=== PATIENT | female | born 1985 | race Caucasian/White ===

== ENCOUNTER 2021-08-14 07:34 | Outpatient (CLI) | payer MEDICARE, MEDICAID, SELFPAY ==
[2021-08-18 17:11] LABS: HPV APTIMA, High Risk Negative (Negative)
== END 2021-08-14 23:59 | disposition home or self-care (01) ==
LOC: LABSPEC 08-15 07:35
PROVIDERS: PCP Family Medicine; Visit Provider Obstetrics & Gynecology
DX: Z12.4 Encounter for screening for malignant neoplasm of cervix (principal)
CPT/HCPCS: 87624; 88175; G0145

== ENCOUNTER 2021-08-15 11:56 | Outpatient (CLI) | payer MEDICARE, MEDICAID, SELFPAY ==
[2021-08-15 12:22] LABS: Absolute Lymphocyte Count 2.72 X10^3/uL (0.83-4.51); Absolute Neutrophil Count 13.9 X10^3/uL (2.0-7.7); Basophil# 0.05 X10^3/uL; Basophil% 0.3 % (0-1); Eosinophil# 0.79 X10^3/uL; Eosinophils% 4.3 % (0-5); Hematocrit 44.7 % (37-47); Hemoglobin 13.9 g/dL (12.0-15.0); Lymphocyte # 2.72 X10^3/ul (0.83-4.51); Lymphocyte % 14.7 % (19-41); Mean Corp Hgb Conc 31.1 g/dL (32-36); Mean Corpuscular Hgb 23.8 pg (27.0-32.0); Mean Corpuscular Volume 76.7 fL (81-99); Monocyte# 0.92 X10^3/uL; NRBC Flagged by Analyzer 0 % (0-5); Neutrophil % 75.3 % (47-70); Platelet Count 442 K/mm3 (150-450); RBC Distribution Width CV 17.4 % (11.6-14.6); RBC Distribution Width SD 46.8 fl (35.1-43.9); Red Blood Count 5.83 M/mm3 (4.2-5.4); White Blood Count 18.5 K/mm3 (4.4-11.0)
[2021-08-15 12:40] LABS: Hemoglobin A1c 5.8 % (3.8-5.6)
[2021-08-15 13:06] LABS: ALB/GLOB Ratio 0.9 RATIO (0.9-2.4); AST(SGOT) 14 U/L (15-37); Alanine Aminotransfer ALT/SGPT 27 U/L (13-56); Albumin, Serum 3.6 g/dL (3.2-5.0); Alkaline Phosphatase 83 U/L (45-117); Anion Gap 8 (5-15); BUN 10 mg/dL (7-18); BUN/Creat Ratio 10.4 RATIO (10-20); Calcium,Total 9.1 mg/dL (8.5-10.1); Chloride 105 mmol/L (98-107); Creatinine, Serum 0.96 mg/dL (0.55-1.02); EST Glomerular Filtration Rate 70 mL/min (>60); Est Glom Filt Rate - Afr Amer 85 mL/min (>60); Globulin 4.2 g/dL (2.2-4.2); Glucose 104 mg/dL (74-106); Potassium 4.1 mmol/L (3.5-5.1); Prolactin 7.6 ng/mL; Protein, Total 7.8 g/dL (6.4-8.2); Sodium Level 138 mmol/L (136-145); Thyroid Stim Hormone (TSH) 1.95 uIU/mL (0.358-3.74)
[2021-08-19 18:07] LABS: Testosterone, % Free 1.97 % (0.50-2.80); Testosterone, Free 0.95 ng/dL (0.10-0.85); Testosterone, Total 48 ng/dL (8-60)
[2021-08-22 10:45] LABS: 17-Hydroxyprogesterone 49 ng/dL (.)
== END 2021-08-15 23:59 | disposition home or self-care (01) ==
LOC: LAB 11:58
PROVIDERS: Obstetrics & Gynecology; PCP Nurse Practitioner; Referring Provider Nurse Practitioner; Visit Provider Nurse Practitioner
DX: R73.09 Other abnormal glucose (principal)
CPT/HCPCS: 36415; 80053; 82627; 83036; 83498; 84146; 84402; 84403; 84443; 85025; 82626

== ENCOUNTER → 2021-09-14 | Outpatient (CLI) | payer MEDICARE, MEDICAID, SELFPAY | END | disposition home or self-care (01) | LOC: RAD 09:03 | PROVIDERS: PCP Nurse Practitioner; Referring Provider Obstetrics & Gynecology; Visit Provider Obstetrics & Gynecology | DX: E28.2 Polycystic ovarian syndrome (principal); N97.9 Female infertility, unspecified | CPT/HCPCS: 58340; 74740 ==

== ENCOUNTER 2021-10-09 08:45 | Day surgery (SDC) | payer MEDICARE, MEDICAID, SELFPAY ==
[2021-10-05 12:37] LABS: Hematocrit 43.4 % (37-47); Hemoglobin 13.7 g/dL (12.0-15.0); Mean Corp Hgb Conc 31.6 g/dL (32-36); Mean Corpuscular Hgb 24.1 pg (27.0-32.0); Mean Corpuscular Volume 76.3 fL (81-99); Mean Platelet Vol. 9.6 fl (6.2-12.0); Platelet Count 448 K/mm3 (150-450); RBC Distribution Width CV 17.8 % (11.6-14.6); RBC Distribution Width SD 46.7 fl (35.1-43.9); Red Blood Count 5.69 M/mm3 (4.2-5.4); White Blood Count 19.3 K/mm3 (4.4-11.0)
[2021-10-09] VITALS (9 sets, daily range): BP systolic 129–149; BP diastolic 79–98; PULSE 68–104; RESP 16; TEMP 36.6–36.8; O2SAT 16–100; BMI 35.5
--- NOTE | 2021-10-09 07:21 | HP.PCM_ITS ---
History and Physical Date of Admission: 10/09/21 MR#:[id number]: MAY TURCIOS ANNRep #[id number] Provider:Dr. Sophie Cobb, DOAge/Sex: 36/F [facility] Int[facility] Vital Signs 10/05/21 11:01 Height 5 ft 2 in Weight: 222 lb BMI 40.6 BP 118/80 Intake Visit Reasons: preop diag. lap chromopertubation Chief Complaint: pre op diag lap chromo Utility Pipe Layer Required: No Is patient in pain?: No Allergies celecoxib [From Celebrex] Allergy (Verified 10/02/21 12:53) Other cephalexin monohydrate [From Keflex] Adverse Reaction (Verified 10/02/21 12:53) Rash sulfamethoxazole [From Bactrim] Adverse Reaction (Verified 10/02/21 12:53) Rash trimethoprim [From Bactrim] Adverse Reaction (Verified 10/02/21 12:53) Rash Medications metformin 500 mg tablet,extended release 24 hr 500 mg PO DAILY #1 tab 08/17/21 [Rx Confirmed 10/05/21] albuterol sulfate 90 mcg INHALATION Q4H PRN 10/02/21 [History Confirmed 10/05/21] clindamycin phosphate [Clindagel] 1 applic TOPICAL DAILY PRN 10/02/21 [History Confirmed 10/05/21] clonazepam 0.5 mg PO PRN PRN 10/02/21 [History Confirmed 10/05/21] sertraline [Zoloft] 100 mg PO DAILY 10/02/21 [History Confirmed 10/05/21] Is last menstrual period known: No Post menopausal: No Patient : No : No PFSH Medical History Alcohol use Anxiety Arthritis Asthma Back pain Bipolar disorder Depression Diabetes History of edema History of Holter monitoring History of pain when walking History of renal disease History of steroid therapy Hx of sinus tachycardia Hydradenitis Marijuana use PCOS (polycystic ovarian syndrome) Shortness of breath on exertion Smoker Thyroid disease Wears dentures Wears glasses Surgical History H/O LEEP H/O unilateral salpingectomy Hx of tooth extraction S/P sinus surgery S/P tonsillectomy and adenoidectomy Family History Mother Diabetes Grandmother Diabetes Other Kidney disease Social History Smoking Status: Current every day smoker tobacco type: cigarettes alcohol intake: never substance use type: does not use caffeine: Yes what type of physical activity do you participate in: walking seatbelt use: always do you feel safe at home: Yes additional social history: -[facility] preop diag. lap chromopertubation Details: MAY TURCIOS is a 36 year old who presents for preop exam for schedule diagnostic laparoscopy and chromopertubation after failed attempt at HSG. The patient could not tolerate the speculum part of the HSG and the procedure was aborted. She currently only has one fallopian tube and desires fertility. One tube was removed several years ago due to hydrosalpinx. At that time, 2014 she was noted to have moderate to severe endometriosis involving both ovaries (socked in posterior aspet of uterus with loculated endometrioma) She has continued to have pelvic pain and continues to desire fertility. She states that her partner took a better job to save up for IVF if the opposite tube needs to be removed. She states that she is prepared for this but would rather have it removed if it means that she has a better chance of achieving with IVF. May also suffers with PCOS (Hirsutism, HS, obesity, and irregular menses) Female Reproductive History Menopausal Symptoms: No hot flashes and No night sweats Pregancy History 0 Elective abortions Hx Para Spontaneous abortions Hx # Term Pregnancies Ectopic pregnancies Hx # Pregnancies Multiple births # of living children ROS Const ROS Unobtainable: All systems reviewed & are unremarkable except as noted in H Constitutional: Reports as per HPI; Denies fatigue, increased appetite, poor appetite, night sweats, weight gain or weight loss ENT ENT: Reports system reviewed and no additional complaints, except as documented Cardio Card: Denies chest pain Resp Resp: Reports system reviewed and no additional complaints, except as documented; Denies cough GI GI: Reports as per HPI : Reports as per HPI and other; Denies difficulty voiding, dysuria, hematuria, hot flashes, nipple discharge, pelvic pain, prolapse symptoms, urinary frequency, urinary incontinence, urinary urgency, vaginal discharge, vaginal dryness, vaginal odor or vaginal pruritus Musc Musc: Reports system reviewed and no additional complaints, except as documented Skin Skin/Breast: Denies changing lesions, breast mass, breast pain, breast skin changes or nipple discharge Psych Psych: Reports system reviewed and no additional complaints, except as documented Endo Endo: Reports as per HPI Exam Const General: cooperative, healthy appearing, comfortable and no acute distress Resp Effort & Inspection: normal respiratory effort Skin General: no rashes or lesions noted Extrem General: normal to inspection Psych Appearance: grossly normal Speech and Movement: speech and movement normal Coding Level of Care Code Off vis,est,level 5 Diagnoses Hydrosalpinx N70.11 PCOS (polycystic ovarian syndrome) E28.2 Hydradenitis L73.2 Assessment and Plan Assessment and Plan (1) Hydrosalpinx: Status: Acute (2) PCOS (polycystic ovarian syndrome): Status: Acute (3) Hydradenitis: Status: Acute Comment: TREATED WITH ANTIBIOTICS CURRENTLY/BILAT AXILLA/SMALL IN GROIN/UNDER ABDOMINAL FOLDS Plan - Dr. Sophie Cobb DO: After discussing the patient's diagnosis and treatment plan options, patient wishes to proceed with surgical management. I have discussed with the patient the risks, benefits, and alternatives of the procedure which include but are not limited to risks of anesthesia, bleeding, infection, possible damage to bowel, bladder, or surrounding vasculature which could lead to additional surgery to evaluate any complications. Patient agrees to procedure and wishes to proceed. ACOG/uptodate references given for additional information regarding procedure. the plan is to proceed with a diagnostic laparoscopy, chromopertubation, possible lysis of adhesions, possible salpingectomy UPDATE- I have seen the patient and performed any clinically relevant updates to the history and physical exam. Sophie Cobb DO
[2021-10-09] MEDS: Lactated Ringers 1,000 ML 15 ML IV (09:05)
[2021-10-09 09:34] LABS: Absolute Lymphocyte Count 2.42 X10^3/uL (0.83-4.51); Absolute Neutrophil Count 10.6 X10^3/uL (2.0-7.7); Basophil# 0.05 X10^3/uL; Basophil% 0.3 % (0-1); Eosinophil# 0.49 X10^3/uL; Eosinophils% 3.4 % (0-5); Hematocrit 41.2 % (37-47); Hemoglobin 12.9 g/dL (12.0-15.0); Lymphocyte # 2.42 X10^3/ul (0.83-4.51); Lymphocyte % 16.6 % (19-41); Mean Corp Hgb Conc 31.3 g/dL (32-36); Mean Corpuscular Hgb 23.8 pg (27.0-32.0); Mean Corpuscular Volume 75.9 fL (81-99); Mean Platelet Vol. 9.8 fl (6.2-12.0); Monocyte# 0.91 X10^3/uL; Monocyte% 6.3 % (0-10); NRBC Flagged by Analyzer 0 % (0-5); Neutrophil % 72.9 % (47-70); Platelet Count 430 K/mm3 (150-450); RBC Distribution Width CV 17.7 % (11.6-14.6); RBC Distribution Width SD 46.5 fl (35.1-43.9); Red Blood Count 5.43 M/mm3 (4.2-5.4); White Blood Count 14.5 K/mm3 (4.4-11.0)
[2021-10-09 09:39] LABS: Internal QC Validated? YES +Cl - CLEAR BKGD; Pregnancy, Urine Negative Negative
--- NOTE | 2021-10-09 09:41 | PCM.DC ---
Discharge Instructions Diet Discharge Diet: No restrictions Activity Discharge Activity: Return to Normal Activity, May Not Drive (for two weeks or while taking narcotic pain medications.), May Shower and May Take a Tub Bath (in 7 days) May resume sexual activity in: 1 week Weight Bearing Status: Full weight bearing Dressing / Incision Call your doctor if you observe: Using more than 1 pad per hour, Shortness of breath, Chest pain and Uncontrolled pain Suture Line Care: Avoid Pulling/Pushing and Avoid Pinching/Bending Remove Dressing in: 1 week (if present) Cleanse incision/area with: Soap & Water and Keep Dressing Clean & Dry Follow Up Care Please Follow Up With: Sophie Cobb DO When: Call to make an appointment with your doctor for a follow up incision check in 1-2 weeks. Test Results: Test results from this visit will be discussed in further detail at your follow-up appointment, if applicable. Discharge Plan Admission Primary Reason for Your Visit: laparoscopy Attending Provider: Sophie Cobb Primary Care Provider: Ashlie Beyer NP Discharge Orders/Prescriptions Prescriptions: New oxycodone-acetaminophen [Percocet] 5-325 mg tablet 1 tab PO Q6H PRN (Reason: pain) 3 Days Qty: 7 RF: 0 ibuprofen 800 mg tablet 800 mg PO Q8H PRN (Reason: pain) 7 Days Qty: 20 RF: 0 Continued sertraline [Zoloft] 100 mg Tablet 100 mg PO DAILY RF: 0 clindamycin phosphate [Clindagel] 1 % gel, once daily 1 applic topical DAILY PRN (Reason: HIDRIADITIS) RF: 0 albuterol sulfate 90 mcg/actuation Aero Powdr Breath Act W/Sensor 90 mcg INHALATION Q4H PRN (Reason: ASTHMA) RF: 0 clonazepam 0.5 mg Tablet 0.5 mg PO PRN PRN (Reason: Anxiety) RF: 0 metformin 500 mg tablet extended release 24 hr 500 mg PO DAILY Qty: 1 RF: 0 Referrals / Follow Up: Ashlie Beyer PLATFORM OPERATIONS DIRECTOR, PLATFORM OPERATIONS DIRECTOR-C [Primary Care Provider] - Disposition Disposition (needs filled in before D/C Order can be placed): Home, Self Care
[2021-10-09] MEDS: Bupivacaine Mpf 0.5% 30 ML VIAL (10:16)
[2021-10-09] MEDS: Lubricating Jelly 60 GM Tube 30 GM (10:16)
[2021-10-09 10:26] LABS: Bedside Glucose 119 mg/dL (74-106)
--- NOTE | 2021-10-09 10:26 | OP.PCM_ITS ---
Problems Associated Problem List Diagnoses (1) PCOS (polycystic ovarian syndrome): (2) Infertility: Report of Operation Date of Procedure: 10/09/21 Pre-Operative Diagnosis: secondary infertility, history of hydrosalpinx, pelvic pain, PCOS Post-Operative Diagnosis: secondary infertility, history of hydrosalpinx, pelvic pain, PCOS Surgery/Procedure Performed:: Diagnostic laparoscopy, chromopertubation of the fallpian tubes Description of Surgical Findings:: surgically absent left fallopian tube, normal right fallopian tube with positive spilling of methylene blue. Normal bilateral ovaries, no signs of endometriosis. Surgeon: Sophie Cobb compressor battery pellets: spencer Type of Anesthesia: General Anesthesiologist: Daryl Doty Specimen's removed: none Drains: none Estimated Blood Loss (mL): none Fluids Replaced: 500cc Description of Procedure: The patient was brought to the operating room where general anesthesia was found to be adequate her legs were placed in stirrups. a weighted speculum was placed in the vagina and the anterior lip of the cervix was grasped with a single-tooth tenaculum. The uterus was sounded to approxim ately 7 cm and a ZUMI uterine manipulator was inserted into the uterus without difficulty. Dilute methylene blue in the syringe was attached to the uterine manipulator. Gloves were changed and attention was turned towards the abdomen. An infraumbilical skin incision was made with a scalpel after half percent Sensorcaine was injected. A 5 mm Visiport was inserted into the abdomen under direct visualization using the 5 mm laparoscope. CO2 gas was used to insufflate the abdomen and the patient was placed in Trendelenburg position. Survey of the abdomen showed normal uterus surgically absent left fallopian tube normal right fallopian tube normal right and left ovaries. There was a corpus luteal cyst present on the left ovary. There was no signs of endometriosis in the cul-de-sac or on either ovaries or fallopian tubes normal-appearing bladder normal-appearing bowel and liver. The methylene blue was then pushed through the uterine manipulator externally and internal flow was seen from the right fallopian tube down to the fimbriated and methylene blue then spilled into the posterior cul-de-sac. At this point there was no need for further dissection or removal of the fallopian tube the procedure was then ended. CO2 gas was turned off and the trocar was opened to allow escape of the gas the trocar was then removed. The infraumbilical skin incision was closed using a 4-0 Monocryl subcuticular stitch and closed with Steri-Strips and OpSite. All vaginal instruments were removed. The patient tolerated the procedure well sponge lap needle counts were correct x2 and she is now being brought to the recovery room in stable condition Complications none Admit VTE Documentation VTE Present on Admission: Yes VTE Mechan Device Prophylaxis: SCD's VTE Pharm Prophylaxis ordered?: No Reason prophylaxis not ordered:: Treatment Not Indicated Multi Select Codes Urinary/Genital Urinary/Genital CPT Codes: 50092 Chromotubation (with diagnostic laparoscopy ) and Other Procedure See Report
== END 2021-10-09 13:20 | disposition home or self-care (01) ==
LOC: SDC 08:45 → AC 08:46
PROVIDERS: PCP Nurse Practitioner; Referring Provider Obstetrics & Gynecology; Visit Provider Obstetrics & Gynecology
PROC: (CPT 49320; principal; 2021-10-09 10:00)
DX: N97.9 Female infertility, unspecified (principal); F31.9 Bipolar disorder, unspecified; E11.9 Type 2 diabetes mellitus without complications; N70.11 Chronic salpingitis; N83.12 Corpus luteum cyst of left ovary; E28.2 Polycystic ovarian syndrome; F41.9 Anxiety disorder, unspecified; J45.909 Unspecified asthma, uncomplicated; G89.29 Other chronic pain; F17.210 Nicotine dependence, cigarettes, uncomplicated; M54.9 Dorsalgia, unspecified; Z79.899 Other long term (current) drug therapy; Z79.84 Long term (current) use of oral hypoglycemic drugs
CPT/HCPCS: 49320; 58350; 36415; 81025; 82962; 85025; 85027; 86850; 86900; 86901; J7120; J2405; Q9968